=== PATIENT | male | born 1990 | race Caucasian/White ===

== ENCOUNTER 2017-03-10 15:49 | Emergency (ER) | payer OTHER ==
[~2017-03-10] VITALS: Ht 177.8 cm; Wt 83.4 kg
[2017-03-10 16:22] LABS: HEMATOCRIT 43.5 % (38.0-50.0); MCH 26.4 PG (29.0-34.0); MCHC 32.9 G/DL (30.0-36.0); MCV 80.3 FL (86-99); MEAN PLAT.VOLUME 11.2 uM^3 (9.0-12.4); PLATELET COUNT 129 K/uL (156-360); RBC DIS.WIDTH-CV 14.6 % (11.8-14.6); RBC DIS.WIDTH-SD 42.1 % (39-53); RED BLOOD COUNT 5.42 M/uL (4.00-5.50); WHITE BLOOD COUNT 7.2 K/uL (4.1-10.2)
[2017-03-10 16:33] LABS: CHLORIDE 100 mEq/L (99-109); SODIUM 138 mEq/L (136-147)
[2017-03-10 16:35] LABS: GLUCOSE 93 mg/dL (70-99)
[2017-03-10 16:36] LABS: ANION GAP 14 MEQ/L (2-14)
[2017-03-10 16:37] LABS: TOTAL BILIRUBIN 0.7 mg/dL (0.0-1.0)
[2017-03-10 16:39] LABS: ALKALINE PHOSPHATASE 110 IU/L (3-129)
[2017-03-10 16:40] LABS: GFR ESTIMATE (CALCULATED) > 59 mL/min/; UREA NITROGEN (BUN) 20 mg/dL (9-23)
[2017-03-10 16:53] LABS: ADD MIUA? YES; BILIRUBIN NEGATIVE; BLOOD NEGATIVE; COLOR YELLOW ((YELLOW)); GLUCOSE (STRIP) NEGATIVE; KETONES 5; LEUKOCYTES NEGATIVE; NITRITE NEGATIVE; PROTEIN (STRIP) 100; SPECIFIC GRAVITY 1.028 (1.000-1.030)
[2017-03-10 17:19] LABS: BACTERIA RARE /HPF; EPITHELIAL CELLS RARE /HPF; MUCUS NONE SEEN /LPF; RED BLOOD CELLS 0-5 /HPF (0-5); UCUL ADDED? NO; WHITE BLOOD CELLS 0-5 /HPF (0-5)
[2017-03-10] MEDS ORDERED: ZANTAC300 MG PO (21:13)
[2017-03-10] MEDS ORDERED: ZOFRAN ODT4 MG PO (21:13)
[2017-03-10] MEDS ORDERED: BENTYL20 MG PO (21:13)
[2017-03-10 21:47] VITALS: BP 127/80
== END 2017-03-10 21:49 | disposition home or self-care (01) ==
LOC: EXP 15:49 → EME 15:49 → EXP 21:49
DX: R10.816 Epigastric abdominal tenderness (principal); R11.2 Nausea with vomiting, unspecified; K21.9 Gastro-esophageal reflux disease without esophagitis; R07.89 Other chest pain; F17.200 Nicotine dependence, unspecified, uncomplicated; Z59.0 Homelessness
CPT/HCPCS: 71020; 74177; 80053; 81003; 85027; 93005; 99281; 99285; J1885; J2405; J3010; J7030